=== PATIENT | female | born 1950 | race Caucasian/White ===

== ENCOUNTER 2017-07-03 14:38 | Emergency (ER) | payer MEDICARE, OTHER ==
[2017-07-03] MEDS ORDERED: Ondansetron ODT 4 MG TAB ONE ×2 (14:49→16:03)
--- NOTE | 2017-07-03 15:52 | RAD ---
LEFT SHOULDER 3 VIEWS: HISTORY: Fall, left shoulder pain. FINDINGS: There is a mildly displaced fracture of the left distal clavicle. A fracture of the left 3rd rib is also seen. POS: [facility]
--- NOTE | 2017-07-03 15:54 | CT ---
NONCONTRAST CT OF THE BRAIN: History: Fall with nausea. FINDINGS: There is calcification involving the globus pallidus bilaterally. No acute infarct, hemorrhage, or h ydrocephalus is present. The septum pellucidum and third ventricle are midline. Mastoid air cells an d paranasal sinuses are clear. The skull appears intact. IMPRESSION: No acute intracranial abnormality. POS: [facility]
--- NOTE | 2017-07-03 15:57 | CT ---
CT OF THE THORACIC SPINE WITHOUT CONTRAST: Indication: Fall with back pain. FINDINGS: No acute fracture or subluxation is evident. Spinal alignment is preserved. There is mild multilevel disc degenerative disease of the thoracic spine. There is diffuse osteopenia. There is partial visu alization of a comminuted midshaft left distal clavicle fracture. Visualized lungs are clear. There is a small hiatal hernia. IMPRESSION: 1. No acute fracture or subluxation of the thoracic spine. 2. Comminuted left clavicle fracture. 3. Small hiatal hernia. POS: [facility]
--- NOTE | 2017-07-03 15:59 | CT ---
NONCONTRAST CT OF THE CERVICAL SPINE: Indication: Fall with neck pain. FINDINGS: There is moderate spondylosis most pronounced at C5-6 and C6-7. There is slight anterior translation of C4 on C5 which is likely degenerative. The osseous central canal appears relatively well preserv ed. There are mild broad based disc osteophyte complexes at C5-6 and C6-7 likely inducing at least m ild central canal narrowing. There is diffuse osteopenia. No definite acute fracture or subluxation is present. IMPRESSION: No acute osseous abnormality. POS: [facility]
== END 2017-07-03 16:54 | disposition home or self-care (01) ==
LOC: ERS 14:38
DX: S06.0X0A Concussion without loss of consciousness, initial encounter (principal); S42.032A Displaced fracture of lateral end of left clavicle, initial encounter for closed fracture; S22.32XA Fracture of one rib, left side, initial encounter for closed fracture; E03.9 Hypothyroidism, unspecified; F41.9 Anxiety disorder, unspecified; F32.9 Major depressive disorder, single episode, unspecified; F17.210 Nicotine dependence, cigarettes, uncomplicated; Z79.899 Other long term (current) drug therapy; W10.9XXA Fall (on) (from) unspecified stairs and steps, initial encounter
CPT/HCPCS: 70450; 72125; 72128; 93005; 96372; J2270; Q0162

== ENCOUNTER 2017-11-26 13:41 | Outpatient (CLI) | payer MEDICARE | END 2017-11-26 13:42 | disposition home or self-care (01) | LOC: BICMAMMO 13:41 | PROVIDERS: ATTEND Family Medicine | DX: Z12.31 Encounter for screening mammogram for malignant neoplasm of breast (principal); M85.80 Other specified disorders of bone density and structure, unspecified site; Z78.0 Asymptomatic menopausal state | CPT/HCPCS: 77063; 77067; 77080 ==

== ENCOUNTER 2020-02-19 13:33 | Outpatient (CLI) | payer MEDICARE ==
--- NOTE | 2020-02-19 16:21 | BD ---
Exam: DEXA Bone Density 02/19/20 HISTORY: Postmenopausal screening for osteoporosis. Lumbar Spine: BMD (g/cm2) T-SCORE Z-SCORE L1 0.903 -0.8 1.1 L2 1.032 0.0 2.2 L3 0.866 -2.0 0.2 L4 0.868 -1.8 0.5 L1-L4 0.914 -1.2 0.9 Femoral Neck: 0.814 -0.3 1.5 Total Femur: 0.912 -0.2 1.3 The ten year fracture risk for a major osteoporotic fracture is 9.2% and for a hip fracture is 1.4%. Impression: Osteopenia. POS: [facility]
== END 2020-02-19 13:34 | disposition home or self-care (01) ==
LOC: BICMAMMO 13:33
PROVIDERS: ATTEND Family Medicine
DX: M85.88 Other specified disorders of bone density and structure, other site (principal)
CPT/HCPCS: 77080

== ENCOUNTER 2021-05-25 09:53 | Outpatient (CLI) | payer MEDICARE | END 2021-05-25 09:54 | disposition home or self-care (01) | LOC: BICMAMMO 09:53 | PROVIDERS: ATTEND Family Medicine | DX: Z12.31 Encounter for screening mammogram for malignant neoplasm of breast (principal) | CPT/HCPCS: 77063; 77067 ==

== ENCOUNTER 2022-05-29 10:28 | Outpatient (CLI) | payer MEDICARE, OTHER | END 2022-05-29 10:29 | disposition home or self-care (01) | LOC: BICMAMMO 10:28 | PROVIDERS: ATTEND Family Medicine | DX: Z12.31 Encounter for screening mammogram for malignant neoplasm of breast (principal); M19.032 Primary osteoarthritis, left wrist; M19.041 Primary osteoarthritis, right hand; N95.9 Unspecified menopausal and perimenopausal disorder; N64.89 Other specified disorders of breast; M85.88 Other specified disorders of bone density and structure, other site | CPT/HCPCS: 77063; 77067; 77080 ==

== ENCOUNTER 2023-03-09 14:54 | Emergency (ER) | payer MEDICARE, OTHER | END 2023-03-09 16:22 | disposition home or self-care (01) | LOC: ERS 14:54 | DX: S32.592A Other specified fracture of left pubis, initial encounter for closed fracture (principal); E03.9 Hypothyroidism, unspecified; K21.9 Gastro-esophageal reflux disease without esophagitis; Z87.891 Personal history of nicotine dependence; W18.30XA Fall on same level, unspecified, initial encounter | CPT/HCPCS: 71045; 72170 ==

== ENCOUNTER 2023-05-30 10:59 | Outpatient (CLI) | payer MEDICARE, OTHER | END 2023-05-30 11:00 | disposition home or self-care (01) | LOC: BICMAMMO 10:59 | PROVIDERS: ATTEND Internal Medicine Endocrinology, Diabetes & Metabolism | DX: Z13.820 Encounter for screening for osteoporosis (principal); S32.9XXA Fracture of unspecified parts of lumbosacral spine and pelvis, initial encounter for closed fracture; M85.88 Other specified disorders of bone density and structure, other site; Z78.0 Asymptomatic menopausal state | CPT/HCPCS: 77080 ==

== ENCOUNTER 2024-01-29 11:39 | Outpatient (CLI) | payer MEDICARE, BC | END 2024-01-29 11:40 | disposition home or self-care (01) | LOC: BICMAMMO 11:39 | PROVIDERS: ATTEND Family Medicine | DX: Z12.31 Encounter for screening mammogram for malignant neoplasm of breast (principal) | CPT/HCPCS: 77063; 77067 ==